=== PATIENT | male | born 1990 | race Caucasian/White ===

== ENCOUNTER 2017-07-31 15:30 | Emergency (ER) | payer OTHER ==
--- NOTE | 2017-07-31 15:40 | ED PDOC ---
Upper Extremity Pain/Injury Time Seen by Provider: 07/31/17 15:39 Chief Complaint (Provider): hand injury History Per: Patient Additional Complaint(s): 26 y/o left hand dominant male presents with pain to left hand s/p punching a wall about 20 minutes prior to arrival. Patient able to bend all digits of left hand. he denies numbness or tingling to affected area. PMD: none Past Medical History Reviewed: Historical Data, Nursing Documentation, Vital Signs - Medical History PMH: No Chronic Diseases - Surgical History Surgical History: No Surg Hx - Family History Family History: States: No Known Family Hx - Living Arrangements Living Arrangements: With Family - Social History Current smoker - smoking cessation education provided: No Alcohol: None Drugs: Denies - Home Medications Home Medications: Ambulatory Orders Medication Instructions Recorded traMADol [Ultram] 50 mg PO Q6H PRN #15 tab 01/15/15 Naproxen [Naprosyn] 500 mg PO BID #20 tab 07/31/17 traMADol [Ultram] 50 mg PO Q6H PRN #15 tab 07/31/17 - Allergies Allergies/Adverse Reactions: Allergies Allergy/AdvReac Type Severity Reaction Status Date / Time No Known Allergies Allergy Verified 07/31/17 15:38 Review of Systems ROS Statement: Except As Marked, All Systems Reviewed And Found Negative Musculoskeletal: Positive for: Other (left hand injury) Physical Exam - Reviewed Vital Signs Reviewed: Yes - Physical Exam Appears: Positive for: Well, Non-toxic, No Acute Distress Skin: Positive for: Normal Color. Negative for: Rash Eye Exam: Positive for: Normal appearance Extremity: Positive for: Other (Swelling and tenderness overlying fifth metacarpal region of left hand, full range of motion of all digits of left hand with pain, full range of motion left wrist, no snuffbox tenderness) Neurologic/Psych: Positive for: Alert, Oriented - ECG O2 Sat by Pulse Oximetry: 100 Pulse Ox Interpretation: Normal - Other Rad X-ray left hand X-Ray: Interpreted by Me, Viewed By Me X-Ray Interpretation: minimally displaced fracture distal left metacarpal Medical Decision Making Medical Decision Makin26 year old with left hand injury Plan: Pain meds declined X-ray left hand Dr. Bo, hand specialist at bedside to see patient. Dr. Bo applied splint and states he will see patient in his office next week for follow up. Patient given splint care instructions along with prescriptions for Naprosyn and tramadol. Patient verbalized understanding of the need for close follow-up. Disposition - Clinical Impression Clinical Impression: Hand fracture - Patient ED Disposition Is Patient to be Admitted: No Counseled Patient/Family Regarding: Studies Performed, Diagnosis, Need For Followup, Rx Given - Disposition Referrals: Angela Bo MD [Medical Doctor] - Disposition: Routine/Home Disposition Time: 16:18 Condition: STABLE Additional Instructions: Keep splint on at all times, do not remove splinter get splint wet. Take prescription meds as directed as needed for pain. Follow-up next week with Dr. Bo in his office. Prescriptions: Naproxen [Naprosyn] 500 mg PO BID #20 tab traMADol [Ultram] 50 mg PO Q6H PRN #15 tab PRN Reason: Pain, Moderate (4-7) Instructions: Hand Fracture
[2017-07-31 15:41] VITALS: BP 136/82; PULSE 88; RESP 18; O2SAT 100
[2017-07-31 16:42] VITALS: TEMP 98.1
--- NOTE | 2017-07-31 17:02 | RAD ---
PROCEDURE: Left Hand Radiographs. HISTORY: trauma COMPARISON: None. FINDINGS: BONES: Comminuted distal 5th carpal fracture with limited volar angulation of the major fracture fragment. JOINTS: Normal. No osteoarthritic changes. SOFT TISSUES: Dorsal soft tissue edema identified. OTHER FINDINGS: None. IMPRESSION: Left 5th metacarpal boxer's fracture as discussed above. Dorsal soft tissue edema identified.
== END 2017-07-31 16:40 | disposition home or self-care (01) ==
LOC: H.ER 15:30
DX: S62.307A Unspecified fracture of fifth metacarpal bone, left hand, initial encounter for closed fracture (principal); W22.01XA Walked into wall, initial encounter